=== PATIENT | female | born 1945 | race Caucasian/White ===

== ENCOUNTER 2018-07-08 08:44 | Day surgery (SDC) | payer MEDICARE, BC ==
[~2018-07-08 08:44] MED LIST: ACETAMINOPHEN 1,000 MG/100 ML BTL IV ONE; CEFAZOLIN 2 Gram 2 GM/50 ML BAG IVPB ONE
[2018-07-08] MEDS ORDERED: MIDAZOLAM HCL 2MG/2ML VIAL IV ONE (08:45)
[2018-07-08] MEDS ORDERED: FENTANYL PF 100MCG/2ML VIAL IV ONE (08:45)
[2018-07-08] MEDS ORDERED: DEXAMETHASONE 4 MG/ML 1ML VIAL IVP ONE (08:45)
[2018-07-08] MEDS ORDERED: BUPIVACAINE 0.5% W/EPI MPF 30 ML VIAL IVP ONE (08:45)
[2018-07-08] MEDS ORDERED: ROCURONIUM BROMIDE 50MG/5ML VIAL IV ONE (08:45)
[2018-07-08] MEDS ORDERED: MORPHINE SULFATE PF 10MG/10ML VIAL IV ONE (08:45)
[2018-07-08] MEDS ORDERED: GLYCOPYRROLATE 0.2 MG/ML ML IV ONE (08:45)
[2018-07-08] MEDS ORDERED: LIDOCAINE 2% MDV (20MG/ML) 20ML VIAL IV ONE (08:45)
[2018-07-08] MEDS ORDERED: PROPOFOL 10 MG/ML VIAL IV ONE (08:45)
[2018-07-08] MEDS ORDERED: SEVOFLURANE 250 ML INH ONE (08:45)
[2018-07-08] MEDS ORDERED: EPHEDRINE SULFATE 50 MG/ML ML IV ONE (08:45)
[2018-07-08] MEDS ORDERED: ATROPINE SULFATE 0.4 MG/ML 20ML IVP ONE (08:45)
[2018-07-08] MEDS ORDERED: BUPIVACAINE LIPOSOME/PF 133MG/10ML VIAL IV ONE (08:45)
[2018-07-08] MEDS ORDERED: ONDANSETRON HCL IV 4 MG/2 ML VIAL IVP ONE (08:45)
[2018-07-08] MEDS ORDERED: KETOROLAC 30 MG/ML VIAL IVP ONE (08:45)
[2018-07-08] MEDS ORDERED: NEOSTIGMINE 1 MG/1 ML,10ML VIAL IV ONE (08:45)
[2018-07-08] MEDS ORDERED: BUPIVACAINE 0.5% (5MG/ML) PF 30ML VIAL IVP ONE (08:45)
[2018-07-08] MEDS ORDERED: METHYLPREDNISOLONE 40MG/VIAL IM ONE (08:45)
[2018-07-08] MEDS ORDERED: SUCCINYLCHOLINE 20 MG/ML 10ML IVP ONE (08:45)
[2018-07-08 09:17] LABS: BASO % 0.2 % (0-6); EOS % 1.6 % (0-6); GRAN % 44.9 % (47-80); HEMATOCRIT 39.3 % (35.0-47.0); HEMOGLOBIN 12.2 gm/dl (11.6-16.0); MEAN PLATELET VOLUME 11.6 fl (7.4-10.4); MONO % 9.3 % (0-9); PLATELET COUNT 138 K/uL (130-400); RED BLOOD COUNT 3.93 M/uL (3.80-5.40); RED CELL DISTRIBUTION WIDTH 14.1 % (11.5-14.5); WHITE BLOOD COUNT W/O DIFF 4.4 K/uL (4.2-12.2)
[2018-07-08 09:26] LABS: BLOOD UREA NITROGEN 13 mg/dL (8-23); CREATININE 0.6 mg/dL (0.5-0.9); EST GLOMERULAR FILTRATION RATE > 60 mL/min; GLUCOSE,RANDOM 109 mg/dL (74-109)
--- NOTE | 2018-07-09 20:23 | Operative Note ---
DATE OF SURGERY: 07/08/2018 PREOPERATIVE DIAGNOSIS: SEVERE IMPINGEMENT LEFT SHOULDER. QUESTION TEAR OF THE ROTATOR CUFF. POSTOPERATIVE DIAGNOSES: 1. SMALL COMPLETE TEAR OF THE ROTATOR CUFF. 2. PROFOUND EXTERNAL IMPINGEMENT LEFT SHOULDER. 3. ADVANCED ARTHROSIS LEFT DISTAL CLAVICLE. 4. DIFFUSE SYNOVITIS OF THE LEFT SHOULDER. 5. GRADE 3 CHONDROMALACIA OF THE SHOULDER. PROCEDURE: 1. REPAIR OF A CHRONICALLY TORN LEFT ROTATOR CUFF TEAR. 2. LEFT SHOULDER OPEN ACROMIOPLASTY, CA LIGAMENT RESECTION, AND SUBACROMIAL BURSECTOMY. 3. LEFT SHOULDER ARTHROSCOPY WITH COMPLETE SYNOVECTOMY AND DEBRIDEMENT. 4. LEFT SHOULDER DISTAL CLAVICLE RESECTION. STAFF SURGEON: DR. LORA GARCIA ANESTHESIA: GENERAL. PREPARATION: CHLORAPREP. INDIVIDUAL CONSIDERATIONS: NONE. PROCEDURE: The patient was taken to the Operating Room and placed supine on the operating table. She had a successful induction with general anesthetic. She was then placed in a semi-seated beach chair position and her left arm and shoulder were prepped and then draped in the usual fashion. The patient had a posterior portal identified for arthroscopy. The skin was infiltrated with 0.5% Marcaine with Epinephrine prior and an #18 gauge spinal needle was easily placed in the joint and the joint was inflated with normal saline. An anterior accessory portal was then made just inferior to the intact long head of the biceps tendon in retrograde fashion with a Wissinger wendy and the joint was irrigated out. The patient's glenohumeral joint had grade 3 changes, especially on the glenoid, which was smoothed with a shaver. Some general fraying of the anterior labrum, quite a bit of synovitis seen throughout , especially in the inferior pouch and above the long head. This was all debrided with a shaver. The long head was intact. The rotator cuff underneath looked like there were partial tears at least from underneath. These were smoothed off with a shaver. The subscapularis looked good. No loose bodies were seen. After irrigation, the joint was irrigated out and the portals were closed with susan. The patient had an anterior approach to the subacromial space and distal clavicle. The skin was again infiltrated with 0.5% Marcaine with Epinephrine prior. Sharp dissection carried down through the skin and subcutaneous tissue. Small veins were coagulated with a Bovie. An anterior deltoid interval was developed. Care was taken again not to split the deltoid more than about 4 cm distal to the anterior tip of the acromion to prevent injury to the axillary nerve. Once in the subacromial space, there were obvious huge spurs anteriorly and at the AC joint and a diffusely thickened bursa. The deltoid was then taken subperiosteally off the anterior aspect of the acromion, over the top of the intact CA ligament, and off the anterior aspect of the obviously degenerated distal clavicle. The CA ligament was resected with a Bovie. The distal clavicle was resected with an oscillating saw, taking about 1 cm. The patient had huge spurs at the acromion anteriorly and a generous acromioplasty was taken, taking a little over 1 cm, most of this being spur, tapering to wedge posteromedially to include the spurs at the AC joint. The undersurface was then smoothed with a rasp. A very thick bursa was debrided out. The patient had a mid substance tear of the supraspinatus. This was repaired easily with a 3-0 Vicryl suture. This was a small tear. The remainder looked contused but otherwise intact. I put the shoulder through a full range of motion to ensure no further impingement and there was none. After irrigation, the deltoid was reattached to the remaining acromion. The anterior deltoid interval was closed with a running #1 Vicryl. The periosteal cuff was closed with a running #2 Vicryl. The subcu was closed with 2-0 Plus Vicryl and the skin was closed with susan. 20 mL of 0.5% Marcaine with Epinephrine along with 10 mg of Morphine and 40 mg DepoMedrol were injected into the subacromial space through a sterile #18 gauge needle and a sterile Bulkee compressive dressing was applied. The patient tolerated the procedure well. Needle and sponge counts were correct, estimated blood loss was minimal, and she was taken back to Recovery in good condition. There were no complications. JOB NUMBER: [id number] [facility]
== END 2018-07-08 13:48 | disposition home or self-care (01) ==
LOC: SUR 08:44
PROVIDERS: ATTEND Orthopaedic Surgery
DX: M75.122 Complete rotator cuff tear or rupture of left shoulder, not specified as traumatic (principal); M19.012 Primary osteoarthritis, left shoulder; M65.812 Other synovitis and tenosynovitis, left shoulder; M94.212 Chondromalacia, left shoulder; I10 Essential (primary) hypertension; E78.00 Pure hypercholesterolemia, unspecified; Z79.01 Long term (current) use of anticoagulants; I50.9 Heart failure, unspecified; G47.33 Obstructive sleep apnea (adult) (pediatric); I25.10 Atherosclerotic heart disease of native coronary artery without angina pectoris; I25.2 Old myocardial infarction; Z95.5 Presence of coronary angioplasty implant and graft; E66.9 Obesity, unspecified
CPT/HCPCS: 23412; 29821; 23415; 29822; 23125; 01630; 64415; 85025; 80048; 76942; J1885; J2405; J3010; J0690; C9290; J0330; J1030; J2710